=== PATIENT | female | born 1950 | race Caucasian/White ===

== ENCOUNTER → 2019-09-27 | Outpatient (CLI) | payer MEDICARE, BC ==
--- NOTE | 2019-09-27 10:40 | Diagnostic Imaging Report ---
TECHNIQUE: Magnetic resonance imaging of the RIGHT SHOULDER was performed WITHOUT injected contrast. COMPARISON: None available. HISTORY: Right shoulder pain FINDINGS: MUSCLES AND TENDONS: Rotator Cuff: Tendons: Supraspinatus partial-thickness articular sided tearing with retraction of the fibers approximately 2 cm image 11 and 12, series 3. Interstitial tearing of the subscapularis. Muscles: No focal muscle atrophy. Biceps Tendon: The long head of the biceps tendon is within the bicipital groove. Split tearing. GLENOHUMERAL JOINT: Joint effusion Glenoid Labrum: Fraying of the superior labrum. Articular Cartilage: Partial-thickness cartilage loss AC JOINT AND ACROMION: Mild hypertrophic degenerative changes of the acromioclavicular joint. Subacromial spurring. BONE: No acute fracture. SOFT TISSUES: Mild subacromial subdeltoid bursal fluid. IMPRESSION: Supraspinatus low-grade partial-thickness articular sided tearing with mild retraction of the deep fibers. No atrophy. Subacromial spurring. Split tearing of the long head biceps tendon. Mild glenohumeral joint degenerative arthrosis. Signed by: Dr. Bud Goodwin M.D. on 09/27/2019 10:37 AM
== END ==
LOC: MRI 08:12
PROVIDERS: ATTEND Specialist
DX: M75.121 Complete rotator cuff tear or rupture of right shoulder, not specified as traumatic (principal)